=== PATIENT | female | born 1940 | race Caucasian/White ===

== ENCOUNTER → 2017-02-23 | Outpatient (REF) | payer OTHER ==
[2017-02-23 14:02] LABS: PERCENT SATURATION 21.9 % (13.2-37.4)
== END ==
LOC: M LAB REF 13:17
PROVIDERS: ATTEND Internal Medicine Medical Oncology
DX: C50.919 Malignant neoplasm of unspecified site of unspecified female breast (principal)

== ENCOUNTER → 2018-03-10 | Outpatient (REF) | payer OTHER ==
[2018-03-10 13:11] LABS: FERRITIN 71 NG/ML (8-252); IRON (FE) 70 UG/DL (50-170); PERCENT SATURATION 18.8 % (13.2-45.0); TOTAL IRON BINDING CAPACITY 373 UG/DL (250-450)
[2018-03-10 13:55] LABS: VITAMIN B12 LEVEL 538 PG/ML (247-911)
== END ==
LOC: M LAB REF 12:18
DX: D64.9 Anemia, unspecified (principal)
CPT/HCPCS: 83550